=== PATIENT | female | born 1995 | race Caucasian/White ===

== ENCOUNTER 2016-11-24 12:30 | Emergency (ER) | payer OTHER ==
[~2016-11-24] VITALS: Ht 157.5 cm; Wt 70.5 kg
[2016-11-24 12:32] VITALS: BP 107/63; PULSE 84; RESP 18; TEMP 98.4; O2SAT 100
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
[2016-11-24] MEDS ORDERED: HYDROmorphone HCL PF 1 MG/ML VIAL IV PUSH ONE (14:15)
[2016-11-24] MEDS ORDERED: ONDANSETRON HCL 4 MG/2 ML VIAL IV PUSH ONE (14:15)
[2016-11-24 14:16] VITALS: BP 110/62; PULSE 71; RESP 14; O2SAT 100
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
[2016-11-24] MEDS ORDERED: IOHEXOL 350 MG/ML 10 ML VIAL (for RAD DIAG) IV ONE (14:56)
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
[2016-11-24] MEDS ORDERED: MOTR200T4 PO ×2 (15:35→15:38)
[2016-11-24] MEDS ORDERED: CYCL1TAB29 PO ×2 (15:35→15:38)
[2016-11-24 15:50] VITALS: BP 112/62; PULSE 67; RESP 13; O2SAT 98
== END 2016-11-24 16:16 | disposition home or self-care (01) ==
LOC: NEPA 12:30
DX: S30.1XXA Contusion of abdominal wall, initial encounter (principal); M54.2 Cervicalgia; M25.552 Pain in left hip; V43.52XA Car driver injured in collision with other type car in traffic accident, initial encounter
CPT/HCPCS: 70450; 71010; 72125; 74177; 84703; 96374; 96375; 99284; J1170; J2405; Q9967